=== PATIENT | female | born 1995 | race Hispanic/Latino ===

== ENCOUNTER 2023-05-20 18:12 | Day surgery (SDC) | payer OTHER ==
[2023-05-20 18:38] VITALS: BMI 25.9
== END 2023-05-20 20:00 | disposition home or self-care (01) ==
LOC: CSHLD/OP 18:12
PROVIDERS: ATTEND Family Medicine
DX: O47.03 False labor before 37 completed weeks of gestation, third trimester (principal); Z3A.36 36 weeks gestation of pregnancy
CPT/HCPCS: 99282

== ENCOUNTER 2023-05-31 14:53 | Inpatient (IN) | payer MEDICAID, OTHER ==
[2023-05-31] MEDS ORDERED: Tranexamic Acid 1,000 MG/10 ML VIAL IVP PRN (15:11)
[2023-05-31] MEDS ORDERED: Lidocaine 1% (PF) 30 ML VIAL SC PRN (15:11)
[2023-05-31] MEDS ORDERED: hydrALAZINE 20 MG/ML VIAL SLOW IVP PRN ×2 (15:11→21:18)
[2023-05-31] MEDS ORDERED: Methylergonovine 0.2 MG/ML VIAL IM PRN (15:11)
[2023-05-31] MEDS ORDERED: Promethazine HCl 25 MG/ML VIAL IM PRN ×3 (15:11→21:18)
[2023-05-31] MEDS ORDERED: HYDROcodone/Acetaminophen 5/325 mg Tablet PO PRN (15:11)
[2023-05-31] MEDS ORDERED: Diphenoxylate HCl/Atropine Tablet PO PRN (15:11)
[2023-05-31] MEDS ORDERED: Acetaminophen 500 MG TAB PO PRN (15:11)
[2023-05-31] MEDS ORDERED: Ondansetron PF 4 MG/2 ML Vial IVP PRN ×3 (15:11→21:18)
[2023-05-31] MEDS ORDERED: Misoprostol 200 MCG TAB PR PRN (15:11)
[2023-05-31] MEDS ORDERED: fentaNYL 50 mcg/mL 1 mL Vial SLOW IVP PRN (15:11)
[2023-05-31] MEDS ORDERED: Ibuprofen 800 MG TAB PO PRN (15:11)
[2023-05-31] MEDS ORDERED: Carboprost 250 MCG/ML AMP IM PRN (15:11)
[2023-05-31] MEDS ORDERED: Lactated Ringer's 1,000 ML IV SCH (15:15)
[2023-05-31] MEDS ORDERED: Oxytocin 30 units/NS 500 ML 500 ML IV SCH ×3 (15:15)
[2023-05-31 16:30] VITALS: BMI 30.2
[2023-05-31 16:35] LABS: Red Blood Cell (RBC) Count 3.72 10x6/uL (3.90-5.03)
[2023-05-31 16:36] LABS: Hematocrit 33.2 % (34.9-44.5); Hemoglobin 11.2 g/dL (12.0-15.5); Mean Corpuscular HGB CONC 33.7 g/dL (32.0-36.0); Mean Corpuscular Hemoglobin 30.1 pg (27.0-33.0); Mean Corpuscular Volume 89.2 fl (81.6-98.3); Mean Platelet Volume 10.6 fl (7.4-10.4); Platelet Count 284 10x3/uL (150-450); RBC Distribution Width 12.7 % (11.5-14.5)
[2023-05-31 17:01] LABS: HBSAg Index 0.17 S/CO (0-0.99); Hep B Surf Ag - L&D Non-Reactive S/CO (NonReactive)
[2023-05-31 17:03] LABS: Syphilis Antibody Nonreactive (Nonreactive); Syphilis Antibody Index 0.04 S/CO (<1.00 Non-Reactive)
[2023-05-31] MEDS ORDERED: fentaNYL/Ropivacaine Epidural 100 ML ONE (18:43)
[2023-05-31] MEDS ORDERED: diphenhydrAMINE 50 MG/ML VIAL IVP PRN (19:23)
[2023-05-31] MEDS ORDERED: Naloxone HCl 0.4 mg/ml Vial IVP PRN ×2 (19:23)
[2023-05-31] MEDS ORDERED: Moisturizing Cream (Eucerin) 113 GM JAR TOP PRN (19:23)
[2023-05-31] MEDS ORDERED: Acetaminophen 325 MG TAB PO PRN (19:23)
[2023-05-31] MEDS ORDERED: Lactated Ringer's 500 ML IV PRN (19:23)
[2023-05-31] MEDS ORDERED: ePHEDrine Sulfate 50 MG/10 ML VIAL SLOW IVP PRN (19:23)
[2023-05-31] MEDS ORDERED: fentaNYL 2 mcg/Ropivacaine 0.2% Epidural 100 ML CADD EPIDURAL SCH (19:30)
[2023-05-31] MEDS ORDERED: Communication Order-Pharmacy FS SCH (19:30)
[2023-05-31] MEDS ORDERED: Lanolin Ointment 7 GM TUBE TOP PRN (21:18)
[2023-05-31] MEDS ORDERED: Milk Of Magnesia 30 ML UDCUP PO PRN (21:18)
[2023-05-31] MEDS ORDERED: Misoprostol 200 MCG TAB VAG PRN (21:18)
[2023-05-31] MEDS ORDERED: diphenhydrAMINE 25 MG CAP PO PRN (21:18)
[2023-05-31] MEDS ORDERED: Boostrix 0.5 ML (Tdap) VIAL (>/=7 yrs of age) IM ONE (21:18)
[2023-05-31] MEDS ORDERED: Bisacodyl 10 MG SUPP PR PRN (21:18)
[2023-05-31] MEDS ORDERED: Benzocaine-Menthol 82.5 ML CAN TOP PRN (21:18)
[2023-05-31] MEDS ORDERED: Docusate 100 MG CAP PO SCH (22:15)
[2023-05-31] MEDS: Ibuprofen 800 MG TAB PO SCH (22:52)
[2023-05-31] MEDS: Docusate 100 MG CAP PO SCH (23:35)
[2023-06-01] MEDS: HYDROcodone/Acetaminophen 5/325 mg Tablet PO PRN ×4 (02:25→21:26)
[2023-06-01] MEDS: Ibuprofen 800 MG TAB PO SCH ×3 (05:07→21:25)
[2023-06-01] MEDS: Prenatal Vitamin 1 TAB PO SCH (07:50)
[2023-06-01] MEDS: Docusate 100 MG CAP PO SCH ×2 (07:50→21:25)
[2023-06-01] MEDS: Ferrous Sulfate 325 MG TAB PO SCH ×2 (07:51→15:30)
[2023-06-01] MEDS ORDERED: Bupivacaine 0.25% HCL 30 ML VIAL ONE (19:43)
[2023-06-02] MEDS: Ibuprofen 800 MG TAB PO SCH (05:08)
[2023-06-02] MEDS: HYDROcodone/Acetaminophen 5/325 mg Tablet PO PRN ×2 (05:08→08:19)
[2023-06-02] MEDS: Ferrous Sulfate 325 MG TAB PO SCH (07:57)
[2023-06-02] MEDS: Prenatal Vitamin 1 TAB PO SCH (08:14)
[2023-06-02] MEDS: Docusate 100 MG CAP PO SCH (08:14)
[2023-06-02 08:26] VITALS: BP 107/63; TEMP 98.6
== END 2023-06-02 12:20 | disposition home or self-care (01) | DRG 807 ==
LOC: CSHLD 14:53 → CSHPP 23:02
PROVIDERS: ADMIT Family Medicine; ATTEND Family Medicine
PROC: 10E0XZZ Delivery of Products of Conception, External Approach (ICD-10-PCS; principal; 2023-05-31)
PROC: 0KQM0ZZ Repair Perineum Muscle, Open Approach (ICD-10-PCS; 2023-05-31)
PROC: 10907ZC Drainage of Amniotic Fluid, Therapeutic from Products of Conception, Via Natural or Artificial Opening (ICD-10-PCS; 2023-05-31)
DX: O70.1 Second degree perineal laceration during delivery (principal); Z37.0 Single live birth; Z3A.38 38 weeks gestation of pregnancy
CPT/HCPCS: 36415; 51702; 85027; 86780; 86850; 86900; 86901; 87340; J2590; J3010; S0020

== ENCOUNTER 2023-06-17 13:21 | Emergency (ER) | payer MEDICAID, SELFPAY ==
[2023-06-17 14:22] LABS: Bilirubin Neg (Negative); Blood, Urine 25 (Negative); Clarity Clear (Clear); Glucose, Urine (Dipstick) Normal (Negative); Ketone, Urine Negative (Negative); Leukocyte 500 (Negative); Nitrite Negative (Negative); Protein, Urine (Dipstick) Negative (Neg-Trace); Specific Gravity, Urine 1.015 (1.005-1.030); Urobilinogen Normal mg/dL (Less than 2)
[2023-06-17] MEDS ORDERED: Ketorolac Tromethamine 30 MG/ML VIAL ONE (14:23)
[2023-06-17] MEDS ORDERED: Ondansetron PF 4 MG/2 ML Vial ONE ×3 (14:23→15:56)
[2023-06-17 14:28] LABS: #Eosinphils 0.1 10x3/uL (0.0-0.5); #Monocytes 0.7 10x3/uL (0.0-1.1); #Neutrophils 6.2 10x3/uL (1.5-8.4); %Basophils 0.4 % (0.0-2.0); %Eosinophils 1.4 % (0.0-6.0); %Lymphocytes 30.1 % (18.0-47.0); %Neutrophils 60.9 % (40.0-75.0); Hematocrit 38.5 % (34.9-44.5); Hemoglobin 12.9 g/dL (12.0-15.5); Mean Corpuscular HGB CONC 33.5 g/dL (32.0-36.0); Mean Corpuscular Hemoglobin 29.5 pg (27.0-33.0); Mean Corpuscular Volume 88.1 fl (81.6-98.3); Mean Platelet Volume 9.4 fl (7.4-10.4); Platelet Count 410 10x3/uL (150-450); RBC Distribution Width 12.5 % (11.5-14.5); Red Blood Cell (RBC) Count 4.37 10x6/uL (3.90-5.03); White Blood Cell (WBC) Count 10.2 10x3/uL (3.5-10.5)
[2023-06-17 14:37] LABS: BHCG - Serum Negative (NEGATIVE); Pregs Control Background? CLEAR/WHITE (CLR/WHITE); Pregs Control Bar Appear? YES (CONTROL BAR)
[2023-06-17 14:39] LABS: Bacteria/HPF 2+ HPF (None Seen); CAUTI Indications for Culture Dysuria,urgency,freq; Squamous Epithelial 0-3 HPF (0-3); WBC/HPF 21-50 HPF (0-3)
[2023-06-17 14:41] LABS: Urine Culture Reflex Yes Yes
[2023-06-17 14:43] LABS: ALT (SGPT) 39 U/L (8-55); AST (SGOT) 32 U/L (5-34); Albumin 4.1 g/dL (3.5-5.0); Alkaline Phosphatase 92 U/L (40-110); Anion Gap 16 mmol/L (10-20); BUN (Urea Nitrogen) 15 mg/dL (7.0-18.7); Bilirubin, Total 0.3 mg/dL (0.2-1.2); Calc. Creatinine Clearance 0 mL/min (70-130); Calcium 9.1 mg/dL (7.8-10.44); Carbon Dioxide 23 mmol/L (22-29); Chloride 104 mmol/L (98-107); Estimated GFR 120; Globulin 3.4 g/dL (2.4-3.5); Glucose 105 mg/dL (70-105); Potassium 3.9 mmol/L (3.5-5.1); Protein, Total 7.5 g/dL (6.0-8.3); Sodium 139 mmol/L (136-145)
[2023-06-17] MEDS ORDERED: cefTRIAXone (ROCEPHIN) 2 GM VIAL ONE (15:57)
[2023-06-17] MEDS ORDERED: Morphine 4 MG/ML VIAL ONE ×2 (16:20→18:48)
== END 2023-06-17 19:19 | disposition home or self-care (01) ==
LOC: CSHERS 13:21
DX: O86.20 Urinary tract infection following delivery, unspecified (principal); O99.893 Other specified diseases and conditions complicating puerperium; N83.201 Unspecified ovarian cyst, right side
CPT/HCPCS: 74176; 76856; 80053; 81001; 84703; 85025; 87086; 96374; 96375; 96376; J0696; J1885; J2270; J2405

== ENCOUNTER 2025-05-20 12:00 | Emergency (ER) | payer OTHER, SELFPAY ==
[2025-05-20 13:14] LABS: #Basophils Less than 0.03 10x3/uL (0.0-0.2); #Eosinophils 0.04 10x3/uL (0.0-0.5); #Monocytes 0.55 10x3/uL (0.0-1.1); #Neutrophils 4.20 10x3/uL (1.5-8.4); %Basophils 0.1 % (0.0-2.0); %Eosinophils 0.5 % (0.0-6.0); %Lymphocytes 36.9 % (18.0-47.0); %Monocytes 7.2 % (0.0-10.0); %Neutrophils 55.0 % (40.0-75.0); Hematocrit 38.2 % (34.9-44.5); Hemoglobin 12.6 g/dL (12.0-15.5); Mean Corpuscular Hemoglobin 28.8 pg (27.0-33.0); Mean Corpuscular Volume 87.4 fL (81.6-98.3); Platelet Count 362 10x3/uL (150-450); Red Blood Cell (RBC) Count 4.37 10x6/uL (3.90-5.03); White Blood Cell (WBC) Count 7.64 10x3/uL (3.5-10.5)
[2025-05-20 13:25] LABS: BHCG - Serum Negative (NEGATIVE); Pregs Control Background? CLEAR/WHITE (CLR/WHITE); Pregs Control Bar Appear? YES (CONTROL BAR)
[2025-05-20 13:32] LABS: ALT (SGPT) 36 U/L (Less than 34); AST (SGOT) 32 U/L (11-34); Albumin 4.4 g/dL (3.1-4.5); Alkaline Phosphatase 44 U/L (40-110); Anion Gap 13 mmol/L (10-20); BUN (Urea Nitrogen) 9 mg/dL (7.0-18.7); Bilirubin, Total 0.4 mg/dL (0.3-1.2); Calc. Creatinine Clearance 0 mL/min (70-130); Calcium 9.7 mg/dL (7.8-10.44); Carbon Dioxide 25 mmol/L (22-29); Chloride 104 mmol/L (98-107); Globulin 3.6 g/dL (2.4-3.5); Glucose 97 mg/dL (70-105); Lipase 20 U/L (8-78); Potassium 3.9 mmol/L (3.5-5.1); Sodium 138 mmol/L (136-145)
[2025-05-20 14:11] LABS: Glucose, Urine (Dipstick) Normal (Negative); Leukocyte 100 (Negative); Protein, Urine (Dipstick) Negative (Neg-Trace); Specific Gravity, Urine 1.010 (1.005-1.030)
[2025-05-20] MEDS ORDERED: Acetaminophen 325 MG TAB ONE (14:11)
[2025-05-20] MEDS ORDERED: Ibuprofen 200 MG TAB ONE (14:11)
[2025-05-20 14:53] LABS: Bacteria/HPF 2+ HPF (None Seen); CAUTI Indications for Culture Pelvic or flank pain; RBC/HPF 0-3 HPF (0-3); Urine Culture Reflex No No
== END 2025-05-20 16:11 | disposition home or self-care (01) ==
LOC: CSHERS 12:00
DX: N83.201 Unspecified ovarian cyst, right side (principal)
CPT/HCPCS: 36415; 76856; 80053; 81001; 83690; 84703; 85025; 93976